=== PATIENT | female | born 1980 | race Caucasian/White ===

== ENCOUNTER → 2025-04-29 | Day surgery (SDC) | payer BC, OTHER ==
[2025-04-25 13:36] LABS: BASOPHILS % 0.9 % (0.0-1.0); EOSINOPHILS % 2.6 % (0.0-6.0); LYMPHOCYTES % 26.1 % (18.0-39.1); MONOCYTES % 8.4 % (4.4-11.3); NEUTROPHILS % 61.8 % (38.7-80.0); RED CELL DISTRIBUTION WIDTH 13.2 % (11.7-14.4)
[2025-04-25 14:04] LABS: EST GLOMERULAR FILTRATION RATE 100.0 ML/MIN (>=60)
[~2025-04-29] MED LIST: ACETAMINOPHEN 1000 MG/100 ML 100 ML IV ONE; BUPIVACAINE 0.5%/EPI 30 ML SDV INJ ONE; DEXAMETHASONE SOD PHOS INJ 4 MG/ML SDV ONE; FAMOTIDINE 20 MG/2 ML VIAL IV ONE; FENTANYL CITRATE/PF 100MCG/2 ML INJ ONE; LIDOCAINE HCL 2% LOCAL INJ 5 ML SDV VIAL INJ ONE; METOCLOPRAMIDE HCL 10 MG/2ML VIAL ONE; MIDAZOLAM HCL 2 MG/2 ML VIAL ONE; ONDANSETRON HCL INJ 2MG/ML 2ML 2 MG/ML VIAL ONE; PROPOFOL IV EMULSION 10 MG/ML 20 ML VIAL ONE; SEVOFLURANE INHAL SOLN 250 ML PEN BTL ONE
[2025-04-29] MEDS: CEFAZOLIN SODIUM 2 GM ONE (05:54)
[2025-04-29] MEDS: LACTATED RINGER'S 1,000 ML ONE (05:55)
[2025-04-29] MEDS: HYDROCODONE/APAP 7.5MG-325MG 1 EA TAB ONE (08:44)
[2025-04-29 09:25] VITALS: BP 126/74; PULSE 66; RESP 16; O2SAT 99
== END | disposition home or self-care (01) ==
LOC: OR 05:28
PROVIDERS: ATTEND Orthopaedic Surgery
DX: S83.232A Complex tear of medial meniscus, current injury, left knee, initial encounter (principal); S83.282A Other tear of lateral meniscus, current injury, left knee, initial encounter; M65.162 Other infective (teno)synovitis, left knee; M22.42 Chondromalacia patellae, left knee; M67.52 Plica syndrome, left knee; Z01.812 Encounter for preprocedural laboratory examination
CPT/HCPCS: 29880; 29999; 36415; 80053; 81025; 85025; C1713; J0131; J1100; J1308; J2003; J2250; J2405; J2704; J2765; J3010; J7121